=== PATIENT | male | born 1990 | race Caucasian/White ===

== ENCOUNTER 2021-11-22 06:21 | Inpatient (IN) | payer MEDICAID ==
[2021-11-22] MEDS ORDERED: Sodium Chloride 0.9% 2.5 ML Syringe FLUSH PRN ×2 (06:38→13:11)
[2021-11-22] MEDS ORDERED: Pantoprazole 40 MG in Sodium Chloride 0.9% 10 ML IVPUSH ONE (06:38)
[2021-11-22] MEDS ORDERED: Sodium Chloride 0.9% 10 ML Syringe FLUSH PRN ×2 (06:38→13:11)
[2021-11-22] MEDS ORDERED: Ondansetron 4 MG/2 ML SDV IVPUSH ONE (06:39)
[2021-11-22 07:09] LABS: CARBON DIOXIDE,CO2 25.6 mmol/L (21.0-32.0)
[2021-11-22] MEDS ORDERED: Sodium Chloride 0.9% 1,000 ML IV ONE (07:16)
[2021-11-22] MEDS ORDERED: LORazepam 2 MG/ML SDV IVPUSH ONE ×3 (07:16→12:32)
[2021-11-22] MEDS ORDERED: Lactated Ringers 1,000 ML IV ONE (09:25)
[2021-11-22] MEDS ORDERED: chlordiazePOXIDE 25 MG Cap PO STA (10:59)
[2021-11-22] MEDS ORDERED: chlordiazePOXIDE 25 MG Cap PO ONE (12:18)
[2021-11-22] MEDS ORDERED: Ondansetron 4 MG/2 ML SDV IVPUSH PRN (13:11)
[2021-11-22] MEDS: Lactated Ringers 1,000 ML IV SCH ×2 (14:10→22:33)
[2021-11-22] MEDS: LORazepam 2 MG/ML SDV IV PRN ×4 (14:11→20:11)
[2021-11-22] MEDS ORDERED: Alum Hydro/Mag Hydro/Simeth XS 15 ML, Lidocaine 2% 5 ML PO ONE ×2 (14:29)
[2021-11-22] MEDS: Sucralfate Suspension 1 GM/10 ML Cup PO SCH ×3 (14:59→20:12)
[2021-11-22] MEDS: Folic Acid 50 MG/10 ML MDV IV SCH (14:59)
[2021-11-22] MEDS: Thiamine 200 MG/2 ML MDV IVPUSH SCH (15:00)
[2021-11-22] MEDS: Pantoprazole 40 MG in Sodium Chloride 0.9% 10 ML IVPUSH SCH (17:01)
[2021-11-23] MEDS: Pantoprazole 40 MG in Sodium Chloride 0.9% 10 ML IVPUSH SCH ×2 (05:38→17:00)
[2021-11-23] MEDS: Lactated Ringers 1,000 ML IV SCH ×3 (06:28→21:28)
[2021-11-23 06:47] LABS: CARBON DIOXIDE,CO2 23.9 mmol/L (21.0-32.0); POTASSIUM,K 3.9 mmol/L (3.5-5.1)
[2021-11-23] MEDS: Sucralfate Suspension 1 GM/10 ML Cup PO SCH ×4 (07:33→20:13)
[2021-11-23] MEDS: LORazepam 2 MG/ML SDV IV PRN ×9 (07:33→23:53)
[2021-11-23] MEDS: Thiamine 200 MG/2 ML MDV IVPUSH SCH (08:30)
[2021-11-23] MEDS: Folic Acid 50 MG/10 ML MDV IV SCH (08:31)
[2021-11-23] MEDS: Morphine 4 MG/ML VIAL IVPUSH PRN ×2 (15:15→20:12)
[2021-11-24] MEDS: Lactated Ringers 1,000 ML IV SCH ×2 (03:00→07:53)
[2021-11-24] MEDS: LORazepam 2 MG/ML SDV IV PRN ×5 (03:06→10:03)
[2021-11-24 05:34] LABS: CARBON DIOXIDE,CO2 26.6 mmol/L (21.0-32.0); POTASSIUM,K 3.6 mmol/L (3.5-5.1)
[2021-11-24] MEDS: Pantoprazole 40 MG in Sodium Chloride 0.9% 10 ML IVPUSH SCH (06:03)
[2021-11-24] MEDS ORDERED: Magnesium Sulfate/Water 2 GM in Premix Bag 1 BAG IV ONE (06:27)
[2021-11-24] MEDS: Sucralfate Suspension 1 GM/10 ML Cup PO SCH (07:39)
[2021-11-24] MEDS: Thiamine 200 MG/2 ML MDV IVPUSH SCH (08:30)
[2021-11-24] MEDS: Folic Acid 50 MG/10 ML MDV IV SCH (08:30)
[2021-11-24] MEDS ORDERED: Gabapentin 300 MG Cap PO SCH (09:07)
[2021-11-24] MEDS ORDERED: Gabapentin 100 MG Cap PO SCH (09:07)
== END 2021-11-24 11:20 | disposition left against medical advice (07) | DRG 377 ==
LOC: MW.ED 06:21 → MW.ICU 12:29
PROVIDERS: ADMIT Student in an Organized Health Care Education/Training Program; ATTEND Student in an Organized Health Care Education/Training Program
DX: K29.21 Alcoholic gastritis with bleeding (principal); K85.20 Alcohol induced acute pancreatitis without necrosis or infection; F10.239 Alcohol dependence with withdrawal, unspecified; F10.288 Alcohol dependence with other alcohol-induced disorder; K21.9 Gastro-esophageal reflux disease without esophagitis; Z20.822 Contact with and (suspected) exposure to COVID-19; Z90.49 Acquired absence of other specified parts of digestive tract
CPT/HCPCS: 36415; 36600; 71045; 71045-26; 80053; 80305-QW; 80307; 81001; 82330; 82803; 83605; 83690; 83735; 84100; 84484; 85014; 85018; 85025; 86850; 86900; 86901; 93005; 93010; 96361; 96374; 96375; 96376; 99222; 99232; 99238; 99284; 99285-25; A9270-GY; C9113; J2060; J2270; J2405; J3360; J3411; J3475; J3490; J7030; J7120; U0002

== ENCOUNTER 2021-12-05 21:18 | Emergency (ER) | payer MEDICAID ==
[2021-12-05] MEDS ORDERED: Sodium Chloride 0.9% 1,000 ML IV ONE ×2 (21:28→22:51)
[2021-12-05] MEDS ORDERED: LORazepam 2 MG/ML SDV IVPUSH ONE ×2 (21:30→22:20)
[2021-12-05] MEDS ORDERED: Pantoprazole 80 MG in Sodium Chloride 0.9% 10 ML IVPUSH ONE (21:30)
[2021-12-05] MEDS ORDERED: Ondansetron 4 MG/2 ML SDV IVPUSH ONE (21:30)
[2021-12-05 22:28] LABS: CARBON DIOXIDE,CO2 22.6 mmol/L (21.0-32.0); POTASSIUM,K 4.4 mmol/L (3.5-5.1)
[2021-12-05] MEDS ORDERED: Iopamidol 755 MG/ML 500 ML Multipack Bottle IVPUSH ONE (23:01)
== END 2021-12-06 00:14 | disposition home or self-care (01) ==
LOC: MW.ED 21:18
DX: K85.90 Acute pancreatitis without necrosis or infection, unspecified (principal); F10.930 Alcohol use, unspecified with withdrawal, uncomplicated; Z20.822 Contact with and (suspected) exposure to COVID-19; Z90.49 Acquired absence of other specified parts of digestive tract
CPT/HCPCS: 36415; 71045; 71260; 74177; 80053; 80307; 83605; 83690; 83735; 84443; 84484; 85025; 87635; 93005; 96361; 96374; 96375; 96376; 99285; C9113; J2060; J2405; J3490; J7030; Q9967; 93010; 99284; U0002